=== PATIENT | female | born 1945 | race Hispanic/Latino ===

== ENCOUNTER 2024-07-21 10:12 | Emergency (ER) | payer MEDICARE, BC, SELFPAY ==
[2024-07-21 10:20] VITALS: BP 110/76
--- NOTE | 2024-07-21 11:50 | ED.GENMED ---
History of Present Illness
General
Chief Complaint: Musculo-Skeletal Complaint
Source: patient
Exam Limitations: none
Time Seen by Provider: 07/21/24 11:29
Nursing documentation reviewed up to this point in time: agreed with
History of Present Illness
History of Present Illness:
78-year-old female with a history of CHF on Lasix, hypertension, no history of gout presents for atraumatic pain and swelling to the left first MTP joint over the last 4 days. She did not change her footwear prior to this and cannot think of any
injuries. It initially was not swollen but in the last day has become more swollen and slightly pink. She has not had a fever. She has pain with flexion of the joint. She has not had any pain or swelling extending into her calf. There is no
wounds although the skin of the foot is chronically dry. She does drink alcohol but not heavily
Past History
Past History
ED Past Medical History: Other (Overweight)
ED Past Surgical History: Appendectomy and
Social History
Tobacco: Non-smoker
Alcohol: None
Drug: None
Personal:
Living: with family
Review of Systems
Review of Systems
Allergies reviewed?: Yes
All Other Systems: Not applicable
Phy Exam
Physical Exam
Physical Exam:
GENERAL: Alert , in no apparent distress, comfortable at rest
HEAD: NCAT
CV: 2+ DP PULSES B/L
NEUROLOGICAL: Alert and oriented, no focal neuro deficits, , 5/5 strength, sensation intact, ambulation slight limp right leg
SKIN: Warm and dry, dry cracked skin on the plantar skin of the left foot, there is no obvious wounds, she does have onychomycosis of the toenails
MUSCULOSKELETAL: Patient has swelling localized To the first MTP joint of the left foot with very faint pink skin changes and slight warmth but no significant erythema, she is tenderness to this joint, and limited painful range of motion but is able
to flex and extend 15 degrees
The calcaneus is normal, the ankle is normal, the calf is normal without any edema tenderness
PSYCH: Normal and appropriate interaction.
Course
Orders/Labs/Results
Orders:
Orders
07/21/24 10:27
Foot, Left 3 View [CR Foot - Left Min 3 Views] Urgent
Comment:
Reason For Exam: pain, swelling
07/21/24 11:49
Cast Shoe Left-Treatment ONCE
07/21/24 11:50
Ibuprofen [Motrin] 600 mg PO NOW STA
Vital Signs
Initial and Last Documented VS:
Initial Vital Signs
Temp Pulse Resp BP Pulse Ox
98.9 F 80 22 110/76 96
07/21/24 10:20 07/21/24 10:20 07/21/24 10:20 07/21/24 10:20 07/21/24 10:20
Last Documented Vital Signs
Temp Pulse Resp BP Pulse Ox
98.9 F 80 22 110/76 96
07/21/24 10:20 07/21/24 10:20 07/21/24 10:20 07/21/24 10:20 07/21/24 10:20
MDM/Problems Addressed
Differential Diagnosis Includes:
OA, gout, tendinitis
MDM/Problems Addressed:
78 y/o F
atraumatic 1st MTP joint pain an dnow swelling faint erythema warmth
started 4 days ago
painful flexion and weight bearing
no fever/chills
never had gout
on exam seems more like OA flare than gout, less red, more pink/inflammed
no cellulitis
xray shows mild OA 1st MTP indep reviewed by me
hard sole shoe
cr normal on recent testing a few mo ago
so will do nsaids x 4-5 days with food 400 mg bid
pt says she can tolerate
d/c home
podiatry
*Critical Care Note
Total Time (30-74mins, 75-104mins- exclusive of procedures): Not Applicable
ED Attending Note
-
Portions of this chart may have been created with voice recognition software.� Occasional wrong word or��sound alike� substitutions may have occurred due to the inherent limitations of voice recognition software.
Discharge Plan
Departure
Patient Disposition: Home (Routine Discharge)
Date of Disposition: 07/21/24
Time of Disposition: 11:54
Patient with high blood pressure during this ER visit?: No
Covid-19: Not Applicable
Discharge Problem:
Arthritis of foot
Instructions: Metatarsalgia (DC)
Prescriptions:
New
ibuprofen [Motrin IB] 200 mg capsule
400 mg PO [id number] PRN (Reason: Pain) 5 Days Qty: 20 0RF
No Action
cyanocobalamin (vitamin B-12) 1,000 MCG tablet
1,000 mcg PO DAILY
ascorbic acid (vitamin C) [Vitamin C] 500 MG tablet
500 mg PO DAILY
magnesium 250 MG tablet
250 mg PO DAILY
cholecalciferol (vitamin D3) 1,000 UNITS tablet
1,000 units PO DAILY
L.acidoph, paracasei,B. lactis 1 EACH capsule
1 ea PO DAILY
aspirin 81 mg Tablet,Delayed Release (Dr/Ec)
81 mg PO HS
melatonin 3 mg Tablet
3 mg PO HS PRN (Reason: insomnia )
carvedilol 6.25 mg Tablet
6.25 mg PO BID Qty: 60 0RF
furosemide [Lasix] 40 mg tablet
40 mg PO DAILY Qty: 30 0RF
lisinopril 5 mg tablet
5 mg PO DAILY Qty: 30 0RF
Referrals:
Tonio Nation DPM [Active] - Follow up in 5-7 days
Activity Restrictions/Additional Instructions:
Your foot pain and swelling could be from mild arthritis. Your x-ray showed mild degenerative changes of that joint. You should elevate your foot, you can ice off-and-on. Take ibuprofen 400 mg 2 times a day with food for 3 to 5 days in a row.
This is an anti-inflammatory can help with the swelling. ALSO TRY TYLENOL 3 TIMES A DAY
If this is continuing to be painful for you you should follow-up with a chief nurse executive or foot doctor at Dr. Summers's office, his name is Dr. Nation. Call for an appointment. Watch for worsening redness, worsening swelling, fevers or chills,
inability to weight-bear and return to the ER. Otherwise use the special shoe to help you walk and you can also use a cane in your opposite hand to help balance out the pain
Interventions
Interventions:
*Risk Screen - Suicide Last Done: 07/21/24 12:33
*General Assessment Last Done: 07/21/24 12:07
*Neglect/Abuse Screening Last Done: 07/21/24 12:07
*ED COVID-19 Vaccine History Last Done: 07/21/24 12:07
*Nursing Disposition Last Done: 07/21/24 12:34
ED-Musculoskeletal Assessment Last Done: 07/21/24 12:07
Discharge Date and Time
Discharge Date/Time: 07/21/24 12:35
Print Language: LITHUANIAN
[2024-07-21] MEDS: MOTRIN 600 MG PO (12:02)
== END 2024-07-21 12:35 | disposition home or self-care (01) ==
LOC: EMR 10:12
PROVIDERS: EMERGENCY PHYSICIAN Student in an Organized Health Care Education/Training Program
DX: M19.072 Primary osteoarthritis, left ankle and foot (principal); I11.0 Hypertensive heart disease with heart failure; I50.9 Heart failure, unspecified; Z79.899 Other long term (current) drug therapy
CPT/HCPCS: 99283; 73630

== ENCOUNTER → 2024-09-05 11:13 | Outpatient (REF) | payer MEDICARE, BC, SELFPAY ==
--- NOTE | 2024-09-05 12:19 | CARDSERVLU ---
Echocardiogram with [facility] completed after protocol screening completed. Allergies verified.
Patent IV site: _Left hand metacarpal 22 G PC____
IV site flushed with 0.9% NaCl pre and post administration.
Diluted bolus method utilized to enhance visualization of ventricular penn.
Total volume given: __4__ mL
Patient tolerated all procedures well without complications.
Heplock D/C ed at 1214, site clear, no redness, no edema. Pressure held , no bleeding, 2x2 applied and taped. Pt offers no complaints.
== END ==
LOC: RCS 11:13
PROVIDERS: ATTENDING PHYSICIAN Internal Medicine Cardiovascular Disease
DX: I50.21 Acute systolic (congestive) heart failure (principal)
CPT/HCPCS: 93306; Q9950

== ENCOUNTER → 2024-09-19 10:57 | Outpatient (REF) | payer MEDICARE, BC, SELFPAY ==
[2024-09-19 12:24] LABS: ALT (SGPT) 23 U/L (0-35); AST (SGOT) 21 U/L (14-36); Albumin 4.5 g/dl (3.5-5.0); Alkaline Phosphatase 60 U/L (38-126); Blood Urea Nitrogen 15 mg/dl (7-17); Calcium 9.5 mg/dl (8.4-10.2); Carbon Dioxide 23 mmol/L (22-30); Chloride 103 mmol/L (98-107); Glucose 143 mg/dl (70-99); HDL Cholesterol 39 mg/dl; LDL Cholesterol, Calculated 123 mg/dl; Potassium 4.6 mmol/L (3.5-5.1); Sodium 142 mmol/L (135-145); Total Bilirubin 0.7 mg/dl (0.2-1.3); Total Cholesterol 208 mg/dl (50-199); Total Protein 7.3 g/dl (6.3-8.2); Triglyceride 234 mg/dl (10-149); Very Low Density Lipoprotein 46 mg/dl (0-30); eGFR > 60.00
== END ==
LOC: REG 10:57
PROVIDERS: ATTENDING PHYSICIAN Internal Medicine Cardiovascular Disease
DX: E78.2 Mixed hyperlipidemia (principal)
CPT/HCPCS: 36415; 80053; 80061

== ENCOUNTER → 2025-01-31 10:57 | Outpatient (REF) | payer MEDICARE, BC, SELFPAY ==
[2025-01-31 12:42] LABS: ALT (SGPT) 17 U/L (0-35); AST (SGOT) 16 U/L (14-36); Alkaline Phosphatase 66 U/L (38-126); Blood Urea Nitrogen 17 mg/dl (7-17); Calcium 9.8 mg/dl (8.4-10.2); Carbon Dioxide 30 mmol/L (22-30); Chloride 100 mmol/L (98-107); Glucose 155 mg/dl (70-99); HDL Cholesterol 35 mg/dl; LDL Cholesterol, Calculated 36 mg/dl; Potassium 4.3 mmol/L (3.5-5.1); Sodium 138 mmol/L (135-145); Total Bilirubin 0.9 mg/dl (0.2-1.3); Total Cholesterol 108 mg/dl (50-199); Total Protein 6.6 g/dl (6.3-8.2); Triglyceride 186 mg/dl (10-149); Very Low Density Lipoprotein 37 mg/dl (0-30); eGFR > 60.00
== END ==
LOC: REG 10:57
PROVIDERS: ATTENDING PHYSICIAN Internal Medicine Cardiovascular Disease
DX: E78.2 Mixed hyperlipidemia (principal); I10 Essential (primary) hypertension
CPT/HCPCS: 36415; 80053; 80061